=== PATIENT | male | born 1940 | race Caucasian/White ===

== ENCOUNTER 2020-06-01 13:25 | Emergency (ER) | payer OTHER ==
[~2020-06-01] VITALS: Ht 152.4 cm; Wt 63.5 kg
--- NOTE | 2020-06-01 13:25 | NUR ---
PT BIBRA 86 FROM HOME C/O GEN WEAKNESS FOR 3 DAYS. PT IS AAOX3, NOT IN RESPIRATORY DISTRESS, V/S STABLE, KEPT RESTED AND COMFORTABLE. WILL CONTINUE TO MONITOR.
[2020-06-01 13:26] VITALS: BP 126/60
--- NOTE | 2020-06-01 13:29 | NUR ---
SEEN AND EXAMINED BY .
[2020-06-01] MEDS ORDERED: IV NS 0.9% 500 ML BAG IV ONE (13:30)
--- NOTE | 2020-06-01 13:41 | NUR ---
IV LINE ESTABLISHED BLOOD DRAWN AND SENT TO LAB.
[2020-06-01 13:55] LABS: BASOPHILS % (AUTO) 0.7 % (0.0-2.0); HEMATOCRIT 35 % (39-51); HEMOGLOBIN 11.7 g/dL (13.5-17.5); LYMPHOCYTES # (AUTO) 0.9 /CMM (0.8-4.8); LYMPHOCYTES % (AUTO) 17.8 % (20.0-44.0); MEAN CORPUSCULAR HGB CONC 33 g/dl (31.0-36.0); MEAN CORPUSCULAR VOLUME 93 fL (80-96); MONOCYTES # (AUTO) 0.5 /CMM (0.1-1.30); MONOCYTES % (AUTO) 9.3 % (2.0-12.0); NEUTROPHILS # (AUTO) 3.5 /CMM (1.8-8.9); NEUTROPHILS % (AUTO) 70.2 % (43.0-81.0); PLATELET COUNT (AUTO) 145 /CMM (150-450); RED BLOOD CELL COUNT(AUTO) 3.81 MIL/uL (4.5-6.0)
[2020-06-01 14:08] LABS: CALCIUM, SERUM 11.4 mg/dL (8.5-10.1); CARBON DIOXIDE 25 mmol/L (21-32); CHLORIDE 100 mmol/L (98-107); CREATININE 1.8 mg/dL (0.6-1.3); GLUCOSE 163 mg/dL (74-106); POTASSIUM 5.3 mmol/L (3.5-5.1); SODIUM SERUM 134 mmol/L (136-145); UREA NITROGEN, BLOOD 24 mg/dL (7-18)
[2020-06-01 14:14] LABS: ALANINE AMINOTRANSFERASE 35 U/L (12-78); ALBUMIN 3.3 g/dL (3.4-5.0); ALKALINE PHOSPHATASE 164 U/L (46-116); ASPARTATE AMINOTRANSFERASE 45 U/L (15-37); BILIRUBIN,DIRECT 0.3 mg/dL (0.0-0.2); BILIRUBIN,TOTAL 1.1 mg/dL (0.2-1.0); TOTAL PROTEIN, SERUM 7.6 g/dL (6.4-8.2)
--- NOTE | 2020-06-01 14:15 | NUR ---
PT REFUSED XRAY
--- NOTE | 2020-06-01 14:56 | NUR ---
COVID [facility] SENT.
--- NOTE | 2020-06-01 17:38 | NUR ---
CALLED [facility] [phone] REX HARRIS WILL CALL DR. NEWTON BACK.
[2020-06-01 18:12] LABS: BILIRUBIN,URINE Negative (NEGATIVE); COLOR,URINE YELLOW (YELLOW); LEUKOCYTE ESTERASE ,URINE Negative (NEGATIVE); NITRITE, URINE Negative (NEGATIVE); PROTEIN,URINE Negative (NEGATIVE); UGLUCOSE Negative (NEGATIVE); UROBILINOGEN,URINE 0.2 EU/dL (0.2)
--- NOTE | 2020-06-01 19:26 | NUR ---
TRANSFER INFO: [facility] ED, ACCEPTED BY DR LAM HARRIS, RN FOR REPORT [phone], [facility] ETA 2015
--- NOTE | 2020-06-01 20:13 | NUR ---
REPORT GIVEN TO OREN DYKES AT [facility].
--- NOTE | 2020-06-01 20:14 | NUR ---
[facility] IN FACILITY FOR PATIENT, FOR TRANSPORT TO [facility]. NAD. REPORT GIVEN TO AMBULANCE STAFF. ALL DOCUMENTS WITH TRANSPORT.
--- NOTE | 2020-06-01 20:20 | NUR ---
PT LEFT IN STABLE CONDITION
== END 2020-06-01 20:45 | disposition short-term general hospital (02) ==
LOC: ER 13:27
DX: R29.6 Repeated falls (principal); R53.1 Weakness; E86.0 Dehydration; N28.9 Disorder of kidney and ureter, unspecified; E87.5 Hyperkalemia; F03.90 Unspecified dementia, unspecified severity, without behavioral disturbance, psychotic disturbance, mood disturbance, and anxiety; R94.31 Abnormal electrocardiogram [ECG] [EKG]; R06.02 Shortness of breath; Z20.822 Contact with and (suspected) exposure to COVID-19; J81.1 Chronic pulmonary edema; I51.7 Cardiomegaly; M48.061 Spinal stenosis, lumbar region without neurogenic claudication; M51.36 Other intervertebral disc degeneration, lumbar region; M25.78 Osteophyte, vertebrae
CPT/HCPCS: 36415; 70450; 71045; 72131; 80048; 80076; 81003; 82962; 83880; 84132; 84484; 85025; 85730; 87426; 93005; 99285; C9803; J7040